=== PATIENT | female | born 1995 | race Caucasian/White ===

== ENCOUNTER 2021-12-17 15:06 | Emergency (ER) | payer OTHER ==
[~2021-12-17] VITALS: Ht 170.2 cm; Wt 60.8 kg
--- NOTE | 2021-12-17 15:13 | NUR ---
[email or web address], medical screening exam in progress
[2021-12-17] MEDS ORDERED: FLUORESCEIN SODIUM 1 MG STRIP ONE (15:24)
[2021-12-17] MEDS ORDERED: FLUORESCEIN SODIUM 1 MG STRIP OP ONE (15:30)
[2021-12-17 15:50] VITALS: BP 110/70
--- NOTE | 2021-12-17 15:50 | NUR ---
Patient discharged to home in stable condition with brisk steady gait. Written and verbal after care instructions given. Patient verbalized understanding and compliance of instructions. Stressed follow up with primary doctor or return to ER for worsening s/s.
== END 2021-12-17 15:50 | disposition home or self-care (01) ==
LOC: ER 15:13
DX: M25.511 Pain in right shoulder (principal); H57.89 Other specified disorders of eye and adnexa
CPT/HCPCS: A4663

== ENCOUNTER 2022-03-03 17:23 | Emergency (ER) | payer OTHER ==
[~2022-03-03] VITALS: Ht 167.6 cm; Wt 61.2 kg
--- NOTE | 2022-03-03 18:14 | NUR ---
patient pending discharge
--- NOTE | 2022-03-03 18:14 | NUR ---
already seen and orders been entered by dr. Fernandez.
[2022-03-03 18:44] VITALS: BP 115/72
== END 2022-03-03 18:49 | disposition home or self-care (01) ==
LOC: ER 17:23
DX: S90.02XA Contusion of left ankle, initial encounter (principal); S90.01XA Contusion of right ankle, initial encounter; W19.XXXA Unspecified fall, initial encounter; W20.8XXA Other cause of strike by thrown, projected or falling object, initial encounter; Y92.89 Other specified places as the place of occurrence of the external cause
CPT/HCPCS: 73610; A4663